=== PATIENT | female | born 1975 | race Caucasian/White ===

== ENCOUNTER 2019-09-29 21:07 | Emergency (ER) | payer SELFPAY ==
[~2019-09-29] VITALS: Ht 167.6 cm; Wt 68.0 kg
[2019-09-29] MEDS ORDERED: HYDROXYZINE HCL10 MG PO (21:27)
[2019-09-29] MEDS ORDERED: SEROQUEL25 MG PO (21:28)
[2019-09-29] MEDS ORDERED: NORCO 5-325 TA1 EACH PO (23:33)
== END 2019-09-29 23:49 | disposition home or self-care (01) ==
LOC: ED 21:07
DX: S06.9X9A Unspecified intracranial injury with loss of consciousness of unspecified duration, initial encounter (principal); S16.1XXA Strain of muscle, fascia and tendon at neck level, initial encounter; S00.03XA Contusion of scalp, initial encounter; G40.909 Epilepsy, unspecified, not intractable, without status epilepticus; F17.200 Nicotine dependence, unspecified, uncomplicated; W22.8XXA Striking against or struck by other objects, initial encounter
CPT/HCPCS: 70450; 72125; 80053; 81001; 83735; 85025; 99285-25; G0480

== ENCOUNTER 2019-11-01 17:57 | Emergency (ER) | payer SELFPAY ==
[~2019-11-01] VITALS: Ht 165.1 cm; Wt 72.6 kg
[~2019-11-01 17:57] MED LIST: NORCO 5-325 TA1 EACH PO; SEROQUEL25 MG PO
[2019-11-01] MEDS ORDERED: HYDROXYZINE HCL10 MG PO (18:34)
[2019-11-01] MEDS ORDERED: LEXAPRO20 MG PO (18:35)
[2019-11-01] MEDS ORDERED: ALBUTEROL2.5 MG/3 M INH (18:36)
[2019-11-01] MEDS ORDERED: PROVENTIL HFA6.7 GM INH (18:59)
[2019-11-01] MEDS ORDERED: PREDNISONE20 MG PO (18:59)
[2019-11-01] MEDS ORDERED: ROBITUSSIN COU237 M2 PO (19:04)
== END 2019-11-01 19:22 | disposition home or self-care (01) ==
LOC: ED 17:57
DX: J20.9 Acute bronchitis, unspecified (principal); F17.200 Nicotine dependence, unspecified, uncomplicated; Z88.0 Allergy status to penicillin
CPT/HCPCS: 71046; 94640; 99284-25; J7512

== ENCOUNTER 2020-06-15 16:22 | Emergency (ER) | payer OTHER, BC ==
[~2020-06-15] VITALS: Ht 165.1 cm; Wt 72.6 kg
[~2020-06-15 16:22] MED LIST changes: +ALBUTEROL2.5 MG/3 M INH; +HYDROXYZINE HCL10 MG PO; +LEXAPRO20 MG PO; +PREDNISONE20 MG PO; +PROVENTIL HFA6.7 GM INH; +ROBITUSSIN COU237 M2 PO
== END 2020-06-15 18:15 | disposition home or self-care (01) ==
LOC: ED 16:22
DX: S63.501A Unspecified sprain of right wrist, initial encounter (principal); W01.0XXA Fall on same level from slipping, tripping and stumbling without subsequent striking against object, initial encounter; F17.200 Nicotine dependence, unspecified, uncomplicated; Z91.030 Bee allergy status; Z88.0 Allergy status to penicillin
CPT/HCPCS: 73110; 99283-25

== ENCOUNTER 2022-07-30 11:48 | Emergency (ER) | payer SELFPAY ==
[~2022-07-30] VITALS: Ht 165.1 cm; Wt 67.6 kg
[~2022-07-30 11:48] MED LIST changes: +ALLERGY4 MG PO; +DICLOFENAC SODI75 MG PO; +HYDROCODON-ACE1 EA11 PO; +MULTI-DAY PLUS1 EACH PO; +VOLTAREN ARTHRI20 GM TP
== END 2022-07-30 13:05 | disposition home or self-care (01) ==
LOC: ED 11:48
DX: S51.011A Laceration without foreign body of right elbow, initial encounter (principal); F17.200 Nicotine dependence, unspecified, uncomplicated; Z88.0 Allergy status to penicillin; X58.XXXA Exposure to other specified factors, initial encounter
CPT/HCPCS: 12002; 99282-25; A9270

== ENCOUNTER 2024-06-14 14:20 | Emergency (ER) | payer SELFPAY ==
[~2024-06-14] VITALS: Ht 165.1 cm; Wt 70.4 kg
[~2024-06-14 14:20] MED LIST changes: +BACTRIM DS TAB1 EACH PO; +FLOMAX0.4 MG PO; +HYDROCODON-ACE1 EA10 PO; +NAPROSYN500 MG PO; +ONDANSETRON ODT8 MG PO
[2024-06-14] MEDS ORDERED: HYDROCORTISONE 2.5% 30 GM TUBE TOP ONE (14:30)
[2024-06-14] MEDS ORDERED: PETROLATUM TOP ONE (14:30)
[2024-06-14] MEDS ORDERED: [UNRECOGNIZED DRUG - OTHER] TOP ONE (14:30)
[2024-06-14] MEDS ORDERED: MINERAL OIL TOP ONE (14:30)
[2024-06-14] MEDS ORDERED: hydrOXYzine pamoate 50 MG CAP PO ONE (14:30)
[2024-06-14] MEDS ORDERED: HYDROXYZINE HCL50 MG PO (14:34)
[2024-06-14 14:41] VITALS: BP 140/99
== END 2024-06-14 14:42 | disposition home or self-care (01) ==
LOC: ED 14:20
DX: L30.9 Dermatitis, unspecified (principal); F17.200 Nicotine dependence, unspecified, uncomplicated; Z91.038 Other insect allergy status; Z91.041 Radiographic dye allergy status; Z88.0 Allergy status to penicillin; Z88.8 Allergy status to other drugs, medicaments and biological substances; Z91.018 Allergy to other foods; Z85.820 Personal history of malignant melanoma of skin
CPT/HCPCS: 99282

== ENCOUNTER 2024-10-04 08:55 | Emergency (ER) | payer OTHER ==
[~2024-10-04] VITALS: Ht 165.1 cm; Wt 76.7 kg
[~2024-10-04 08:55] MED LIST changes: +HYDROXYZINE HCL50 MG PO
[2024-10-04] MEDS ORDERED: DULOXETINE HCL40 MG PO (09:07)
[2024-10-04] MEDS ORDERED: ALBUTEROL/IPRATROPIUM 3 ML NEB INH ONE ×2 (09:15→10:45)
[2024-10-04] MEDS ORDERED: SODIUM CHLORIDE 0.9% 1,000 ML IV PRN (09:15)
[2024-10-04] MEDS ORDERED: DEXAMETHASONE SOD PHOS 10 MG/ML VIAL IV ONE (09:15)
[2024-10-04 09:24] LABS: BASOPHILS 0.3 % (0-2); EOSINOPHILS 12.1 % (0-6); HEMATOCRIT 41.9 % (35.0-50.0); HEMOGLOBIN 14.5 g/dL (12.0-18.0); LYMPHOCYTES 36.8 % (24-44); MCH 31.3 (27-36); MCHC 34.5 g/dl (30-36); MCV 90.8 fl (81-99); MONOCYTES 12.1 % (0-12); NEUTROPHILS 38.7 % (39-80); PLATELET COUNT 317 K/uL (140-440); RBC 4.62 M/ul (4.3-5.7); RDW 13.7 (10.5-15.0)
[2024-10-04 09:44] LABS: ALBUMIN 2.7 g/dL (3.4-5.0); ALBUMIN/GLOBULIN RATIO 0.71 (1.1-2.4); ALKALINE PHOSPHATASE 124 U/L (46-116); ALT (SGPT) 37 U/L (14-59); ANION GAP 7.7 (7-21); AST (SGOT) 37 U/L (15-37); BILIRUBIN, TOTAL 0.3 ng/dL (0.2-1.0); BUN/CREATININE RATIO 18.44 (6.0-28.6); CALCIUM 8.3 mg/dL (8.5-10.1); CARBON DIOXIDE 30 mmol/L (21-32); CHLORIDE 107 mmol/L (98-107); CREATININE, SERUM 1.03 mg/dL (0.55-1.02); GLOMERULAR FILTRATION RATE,EST 67 mL/min (>60); MAGNESIUM 2.1 mg/dL (1.8-2.4); POTASSIUM 4.7 mmol/L (3.5-5.1); PROTEIN, TOTAL 6.5 g/dL (6.4-8.2); UREA NITROGEN 19 mg/dL (7-18)
[2024-10-04 09:53] LABS: INFLUENZA B NAA NEGATIVE (NEGATIVE); RESPIRATORY SYNCYTIAL VIR NAA NEGATIVE (NEGATIVE)
[2024-10-04] MEDS ORDERED: ALBUTEROL SULFATE 0.083% 3 ML VIAL INH ONE (10:30)
[2024-10-04] MEDS ORDERED: DEXAMETHASONE SOD PHOS 10 MG/ML VIAL PO ONE (10:45)
[2024-10-04] MEDS ORDERED: DOXYCYCLINE HY100 MG PO (11:40)
[2024-10-04] MEDS ORDERED: PREDNISONE20 MG PO (11:40)
[2024-10-04 11:55] VITALS: BP 93/67
--- NOTE | 2024-10-04 16:41 | EKG ---
[facility] [address] [facility] [place], [place] [address] Signed Normal sinus rhythm Normal ECG No previous ECGs available Confirmed by Santi Gonzalez MD ([id number]) on 10/04/2024 4:41:38 PM Electronically Signed By: SANTI GONZALEZ MD 10/04/24 1641 PATIENT NAME: RITA AYOUB Electrocardiogram DATE OF : 79 PHYSICIAN: SANTI GONZALEZ MD REPORT #: [id number] REPORT IS CONFIDENTIAL AND NOT TO BE RELEASED WITHOUT AUTHORIZATION
[2024-10-05 04:41] LABS: PROCALCITONIN 0.03 ng/mL (())
== END 2024-10-04 11:55 | disposition home or self-care (01) ==
LOC: ED 08:55
PROVIDERS: Emergency Medicine
DX: J40 Bronchitis, not specified as acute or chronic (principal); F17.210 Nicotine dependence, cigarettes, uncomplicated; Z91.030 Bee allergy status; Z91.041 Radiographic dye allergy status; Z88.0 Allergy status to penicillin; Z88.8 Allergy status to other drugs, medicaments and biological substances; Z91.018 Allergy to other foods; Z79.899 Other long term (current) drug therapy
CPT/HCPCS: 36415; 71045; 80053; 83605; 83735; 84484; 85025; 87040; 87502; 93005; 93010; 94640; 96374; 99285-25; 99406; J1100; J7030; U0002